=== PATIENT | male | born 1965 | race American Indian/Alaskan Native ===

== ENCOUNTER 2018-11-16 02:53 | Emergency (ER) | payer OTHER ==
[2018-11-16 03:29] VITALS: BP 171/97
[2018-11-16] MEDS ORDERED: BOOSTRIX IM ONE (04:58)
--- NOTE | 2018-11-16 05:06 | XRay Report ---
PROCEDURE: XR HAND 2V RT TECHNIQUE: RIGHT hand radiographs, PA and lateral views. HISTORY: Right ring finger injury COMPARISONS: None . FINDINGS: Fracture (s) and/or Dislocation(s): None . Alignment: Normal . Joint space(s): Normal . Soft tissues: There is soft tissue laceration and swelling of the distal fourth digit. . Bone mineralization: Normal . Foreign bodies: None . IMPRESSION: There is soft tissue laceration and swelling of the distal fourth digit. . There are no acute bony abnormalities. There is no fracture or dislocation.. This document is electronically signed by Glynn Dukes MD., November 16 2018 05:04:07 AM ET
--- NOTE | 2018-11-16 05:27 | Emergency Department Report ---
- General Chief Complaint: Wound/Laceration Stated Complaint: RIGHT HAND LACERATION Time Seen by Provider: 11/16/18 05:21 Source: patient Mode of arrival: Ambulatory Limitations: No Limitations - History of Present Illness Initial Comments: 53-year-old [place] male comes laceration to his right ring finger status post coronary car door one hour prior to arrival. Patient reports no past medical history currently takes no medications on a daily basis and has no known drug allergies. 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) Extremity Location: Right: Hand (Right ring finger) Place: home Patient Tetanus UTD: No Context: accidental Associated Symptoms: pain Treatments Prior to Arrival: other (flushed with water) - Related Data Previous Rx's Medication Instructions Recorded Last Taken Type Cephalexin [Keflex] 500 mg PO BID #14 capsule 11/16/18 Unknown Rx Ibuprofen [Motrin 600 MG tab] 600 mg PO Q8H PRN #15 tablet 11/16/18 Unknown Rx Allergies Allergy/AdvReac Type Severity Reaction Status Date / Time No Known Allergies Allergy Verified 11/16/18 05:17 ED Review of Systems ROS: Stated complaint: RIGHT HAND LACERATION Other details as noted in HPI Comment: All other systems reviewed and negative ED Past Medical Hx - Past Medical History Previous Medical History?: No - Surgical History Past Surgical History?: No - Social History Smoking Status: Never Smoker Substance Use Type: None - Medications Home Medications: Home Medications Medication Instructions Recorded Confirmed Last Taken Type Cephalexin [Keflex] 500 mg PO BID #14 capsule 11/16/18 Unknown Rx Ibuprofen [Motrin 600 MG tab] 600 mg PO Q8H PRN #15 tablet 11/16/18 Unknown Rx ED Physical Exam - General Limitations: No Limitations General appearance: alert, in no apparent distress - Eye Eye exam: Present: EOMI - ENT ENT exam: Present: mucous membranes moist - Neck Neck exam: Present: normal inspection - Neurological Exam Neurological exam: Present: alert, oriented X3 - Psychiatric Psychiatric exam: Present: normal affect, normal mood - Skin Skin exam: Present: other (right ring finger subungual hematoma with bleeding around the cuticle) - Expanded Skin Exam Expanded Type of lesion: Present: laceration (2) Distribution of rash: RUE (right ring finger) ED Course Vital Signs 11/16/18 11/16/18 03:04 03:22 Temperature 98.1 F 98 F Pulse Rate 85 84 Respiratory 18 18 Rate Blood Pressure 189/107 171/97 O2 Sat by Pulse 98 98 Oximetry - Laceration /Wound Repair Right Distal Finger Wound Location: upper extremity (right ring finger) Wound's Depth, Shape: into muscle, linear Wound Explored: no foreign body removed Irrigated w/ Saline (ccs): 60 Betadine Prep?: Yes Anesthesia: 1% Lidocaine Volume Anesthetic (ccs): 6 Wound Repaired With: sutures Suture Size/Type: 5:0 Number of Sutures: 8 Layer Closure?: No Sterile Dressing Applied?: Yes Progress: Patient tolerated well. - Nerve Block Consent Obtained: verbal consent Time Out Performed: Yes Side: right Nerve Blocks: digital (right ring finger web space) Procedure Successful: Yes Complications: none Patient Tolerated Procedure: well ED Medical Decision Making - Radiology Data Radiology results: report reviewed Patient: NORMA FITZPATRICK I MR#: [id number] : 1965 Acct:[id number] Age/Sex: 53 / M ADM Date: 11/16/18 Loc: ED Attending Dr: Ordering Physician: ED MD MACARENA Date of Service: 11/16/18 Procedure(s): XR hand 2V RT Accession Number(s): [id number] cc: ED MD MACARENA Fluoro Time In Minutes: PROCEDURE: XR HAND 2V RT TECHNIQUE: RIGHT hand radiographs, PA and lateral views. HISTORY: Right ring finger injury COMPARISONS: None . FINDINGS: Fracture (s) and/or Dislocation(s): None . Alignment: Normal . Joint space(s): Normal . Soft tissues: There is soft tissue laceration and swelling of the distal fourth digit. . Bone mineralization: Normal . Foreign bodies: None . IMPRESSION: There is soft tissue laceration and swelling of the distal fourth digit. . There are no acute bony abnormalities. There is no fracture or dislocation.. This document is electronically signed by Glynn Conklin MD., November 16 2018 05:04:07 AM ET Transcribed By: CO Dictated By: GLYNN CONKLIN MD Electronically Authenticated By: GLYNN CONKLIN MD Signed Date/Time: 11/16/18 0506 DD/ 7 TD/TT: 11/16/18457 - Medical Decision Making Patient has been evaluated by this provider [facility]. Laceration repair with sutures Patiently placed on pain medication and antibiotics. Patient is to return back in 7 days to have sutures removed. Patient is instructed to return sooner if there is any signs of infection such as increased swelling redness purulent discharge. Critical care attestation.: If time is entered above; I have spent that time in minutes in the direct care of this critically ill patient, excluding procedure time. ED Disposition Clinical Impression: Laceration of finger Qualifiers: Encounter type: initial encounter Finger: ring finger Damage to nail status: without damage Foreign body presence: without foreign body Laterality: right Qualified Code(s): S61.214A - Laceration without foreign body of right ring finger without damage to nail, initial encounter Subungual hematoma of digit of hand Qualifiers: Encounter type: initial encounter Qualified Code(s): S60.10XA - Contusion of unspecified finger with damage to nail, initial encounter Disposition: TO HOME OR SELFCARE Is pt being admited?: No Does the pt Need Aspirin: No Condition: Stable Instructions: Finger Laceration (ED), Laceration (ED), Suture Care (ED) Additional Instructions: Please complete antibiotics as prescribed. Pain medication as needed. Please return back in 7 days to have sutures removed. Please return back sooner if there is any signs of infection such as increased swelling redness purulent discharge or worsening of wound. Prescriptions: Cephalexin [Keflex] 500 mg PO BID #14 capsule Ibuprofen [Motrin 600 MG tab] 600 mg PO Q8H PRN #15 tablet PRN Reason: Pain Referrals: DEDE ARCHER MD [Primary Care Provider] - 3-5 Days Forms: Work/School Release Form(ED)
== END 2018-11-16 06:20 | disposition home or self-care (01) ==
LOC: ED 02:53
DX: S61.214A Laceration without foreign body of right ring finger without damage to nail, initial encounter (principal); S60.041A Contusion of right ring finger without damage to nail, initial encounter; W22.8XXA Striking against or struck by other objects, initial encounter; Y93.89 Activity, other specified; Y92.89 Other specified places as the place of occurrence of the external cause; Y99.8 Other external cause status
CPT/HCPCS: 90715